=== PATIENT | female | born 1935 | race Caucasian/White ===

== ENCOUNTER 2017-08-12 16:06 | Emergency (ER) | payer MEDICARE ==
[2017-08-12 16:18] VITALS: BP 176/79; PULSE 78; RESP 18; TEMP 97.9
--- NOTE | 2017-08-12 16:30 | ED ---
General Adult HPI - General Chief complaint: Extremity Injury, Upper Stated complaint: Fall-shoulder injury Time Seen by Provider: 08/12/17 16:22 Source: patient, RN notes reviewed Mode of arrival: ambulatory Limitations: no limitations - History of Present Illness Initial comments: 82-year-old female presents to the emergency department with a chief complaint of left shoulder pain. Patient tripped on the last step and fell onto her left shoulder. She denies any head or neck pain. She denies any pain anywhere else. She states it hurts if she moves her left shoulder. She states she has not had any other symptoms. States it was a simple trip and fall. There is no loss of consciousness with this. Patient denies any chest pain and lightheadedness or dizziness. Patient was concerned due to her continued pain in the left arm so she thought that she should be evaluated.Patient denies any recent fever, chills, shortness of breath, chest pain, back pain, abdominal pain , nausea vomiting, numbness or tingling, dysuria or hematuria, constipation or diarrhea, headaches or visual changes, or any other current symptoms. - Related Data Home Medications Medication Instructions Recorded Confirmed Aspirin EC [Ecotrin Low Dose] 81 mg PO DAILY 03/28/16 08/12/17 Captopril [Capoten] 6.25 mg PO BID 03/28/16 08/12/17 Levothyroxine Sodium [Synthroid] 100 mcg PO DAILY 03/28/16 08/12/17 Simvastatin [Zocor] 40 mg PO DAILY 03/28/16 08/12/17 Previous Rx's Medication Instructions Recorded Isosorbide Mononitrate ER [Imdur] 30 mg PO DAILY #30 tab.er.24h 08/08/16 Nitroglycerin Sl Tabs [Nitrostat] 0.4 mg SUBLINGUAL Q5M PRN #25 tab 08/08/16 amLODIPine [Norvasc] 5 mg PO DAILY #30 tab 08/08/16 Allergies Allergy/AdvReac Type Severity Reaction Status Date / Time No Known Allergies Allergy Verified 08/12/17 16:18 Review of Systems ROS Statement: Those systems with pertinent positive or pertinent negative responses have been documented in the HPI. ROS Other: All systems not noted in ROS Statement are negative. Past Medical History Past Medical History: Cancer, Chest Pain / Angina, Hyperlipidemia, Hypertension History of Any Multi-Drug Resistant Organisms: None Reported Past Surgical History: Coronary Bypass/CABG, Hysterectomy Past Anesthesia/Blood Transfusion Reactions: No Reported Reaction Past Psychological History: No Psychological Hx Reported Smoking Status: Never smoker Past Alcohol Use History: None Reported Past Drug Use History: None Reported General Exam - General Exam Comments Initial Comments: General: The patient is awake and alert, in no distress, and does not appear acutely ill. Neck: The neck is supple, there is no tenderness. Cardiovascular: There is a regular rate and rhythm. No murmur, rub or gallop is appreciated. Respiratory: Lungs are clear to auscultation, respirations are non-labored, breath sounds are equal. No wheezes, stridor, rales, or rhonchi. Musculoskeletal: Sensation intact with 2+ pulses throughout the left upper extremity. Patient's finding motion of left shoulder. She is tenderness to patient to the distal humerus. Fund motion of left elbow with no joint tenderness. Patient does have some pain with supination. No tenderness patient of the right wrist full range of motion. No deformity or swelling or ecchymosis noted. Neurological: CN II-XII intact, There are no obvious motor or sensory deficits. Coordination appears grossly intact. Speech is normal. Skin: Skin is warm and dry and no rashes or lesions are noted. Psychiatric: Normal mood and affect. Limitations: no limitations Course Vital Signs 08/12/17 16:15 Temperature 97.9 F Pulse Rate 78 Respiratory 18 Rate Blood Pressure 176/79 O2 Sat by Pulse 97 Oximetry Medical Decision Making - Medical Decision Making 82-year-old female presents to the emergency department with a chief complaint of left upper arm pain after a fall. At this time patient's x-rays reviewed and Negative. We discussed she could've a left shoulder sprain. We discussed follow-up with orthopedic return parameters all questions. Patient and family stated they understood and the on agreement this plan. At this time the patient will be discharged home. - Radiology Data Radiology results: report reviewed, image reviewed Disposition Clinical Impression: Sprain of left shoulder Disposition: HOME SELF-CARE Condition: Stable Instructions: Shoulder Sprain (ED) Additional Instructions: Please use medication as discussed. Please follow up with family doctor if symptoms have not improved over the next two days. Please return to the emergency room if your symptoms increase or worsen or for any other concerns. Referrals: Gennaro Benavides MD [Primary Care Provider] - 1-2 days Douglas Benavides MD [STAFF PHYSICIAN] - 1-2 days Time of Disposition: 17:06
--- NOTE | 2017-08-12 16:42 | XR ---
EXAMINATION TYPE: XR shoulder complete LT DATE OF EXAM: 08/12/2017 CLINICAL HISTORY: pain COMPARISON: NONE TECHNIQUE: Three views of the left shoulder are obtained. FINDINGS: There is no acute fracture/dislocation evident. The acromioclavicular and glenohumeral samira int spaces appear mildly narrowed. Humeral head spurring. The visualized ribs are intact and unremar kable. IMPRESSION: 1. There is no acute fracture or dislocation. ICD 10 NO FRACTURE, INITIAL EVALUATION
--- NOTE | 2017-08-12 16:55 | XR ---
EXAMINATION TYPE: XR humerus LT DATE OF EXAM: 08/12/2017 CLINICAL HISTORY: pain TECHNIQUE: Frontal and lateral images of the left humerus are obtained. COMPARISON: None. FINDINGS: There is no acute fracture/dislocation evident. The joint spaces appear within normal limi ts. The overlying soft tissue appears unremarkable. IMPRESSION: There is no acute fracture or dislocation. ICD 10 NO FRACTURE, INITIAL EVALUATION
== END 2017-08-12 17:23 | disposition home or self-care (01) ==
LOC: EC 16:06
DX: S43.402A Unspecified sprain of left shoulder joint, initial encounter (principal); E78.5 Hyperlipidemia, unspecified; I10 Essential (primary) hypertension; Z85.9 Personal history of malignant neoplasm, unspecified; Z95.1 Presence of aortocoronary bypass graft; Z79.82 Long term (current) use of aspirin; Z79.899 Other long term (current) drug therapy; W10.9XXA Fall (on) (from) unspecified stairs and steps, initial encounter; Y93.01 Activity, walking, marching and hiking
CPT/HCPCS: 99283

== ENCOUNTER 2018-01-19 12:09 | Emergency (ER) | payer MEDICARE ==
[2018-01-19] MEDS ORDERED: SODIUM CHLORIDE 0.9% 500 ML IV ONE (12:18)
--- NOTE | 2018-01-19 12:24 | ED ---
General Adult HPI - General Stated complaint: Unresponsive Time Seen by Provider: 01/19/18 12:09 Source: RN notes reviewed - History of Present Illness Initial comments: This is a 83-year-old female we were told by EMS. EMS was initially called for 1080 however when they arrived the patient was having agonal breathing so they bagged the patient they tried to intubate unable to intubate at the scene unable to get an IV and he brought her to us. According to the EMS patient was out raking earlier today and then son came to her house and was unable to get her to answer the dorsi broken the door and found the mother unresponsive and that is when he called EMS. Patient does have some contusion to the right cheek and orbit area. patient did have emesis on her. No other history is available this time in route. patient remained unresponsive Review of Systems ROS Statement: Those systems with pertinent positive or pertinent negative responses have been documented in the HPI. ROS Other: All systems not noted in ROS Statement are negative. General Exam - General Exam Comments Initial Comments: GENERAL: Patient is well-developed and well-nourished. Patient is completely unresponsive even to painful stimuli ENT: Oropharynx has some emesis which is suctioned out by myself. EYES: The sclera were anicteric and conjunctiva were pink and moist. Pupils are fixed and nonreactive PULMONARY: Patient has some agonal breathing with making it difficult to assess the lungs. CARDIOVASCULAR: There is a regular rate and rhythm without any murmurs gallops or rubs. ABDOMEN: Soft and nontender with normal bowel sounds. No palpable organomegaly was noted. There is no palpable pulsatile mass. SKIN: Skin is clear with no lesions or rashes and otherwise unremarkable. NEUROLOGIC: Patient is not alert or oriented. Pupils are fixed and nonreactive MUSCULOSKELETAL: Patient is not moving any extremities at this time LYMPHATICS: No significant lymphadenopathy is noted PSYCHIATRIC: Unable to assess Course Vital Signs 01/19/18 01/19/18 01/19/18 12:23 12:49 12:53 Pulse Rate 69 50 L 48 L Respiratory 5 L 12 12 Rate Blood Pressure 126/77 121/69 115/64 O2 Sat by Pulse 85 L 100 100 Oximetry 01/19/18 01/19/18 01/19/18 13:01 13:14 13:16 Pulse Rate 46 L 44 L 42 L Respiratory 12 12 12 Rate Blood Pressure 133/72 174/70 132/73 O2 Sat by Pulse 100 100 100 Oximetry Procedures - Intubation Time Out Performed: Yes Sedative: Versed Paralytic: Succinylcholine Laryngoscope: Bolton Size: 3 ET Tube Size: 8 ET Tube Uncuffed: No Tube Secured Location: teeth Tube Placement Confirmation: visualized tube passing through cords, equal breath sounds bilaterally, no breath sounds over epigastrium, confirmation by capnometry Patient Tolerated Procedure: well Intubation Complications: none Medical Decision Making - Medical Decision Making EKG shows sinus bradycardia at 57 bpm OH interval is 150 QRS is 90 QT intervals 594 QTC is 578. Patient has Q waves in II, III, and F aVF patient's EKG shows no ST segment elevation or depression. Patient's CT of the brain shows a large left-sided intraparenchymal bleed with extension to both ventricles there is a 1.6 cm shift to the right. Patient's C- spine shows no acute abnormality. Patient is CT of the facial bones there are fractures of the medial wall of both orbits or fractures the medial wall the right maxillary sinus there is suspicion for a nasal bone fracture. I spoke with the 2 sons and the daughter who was in [place] by phone and they all agreed that they did not want the patient transferred from [place] with neurosurgery and they wanted to keep the patient comfortable only they did not want her on the ventilator and they did not want any CPR. Patient was extubated per family request. Patient was pronounced at 2:19 PM I spoke with the medical cash poster and she wanted the body in the morgue - Lab Data Result diagrams: 01/19/18 12:17 01/19/18 12:17 Lab Results 01/19/18 01/19/18 01/19/18 Range/Units 12:17 12:17 12:17 WBC 9.0 (3.8-10.6) k/uL RBC 5.02 (3.80-5.40) m/uL Hgb 15.7 (11.4-16.0) gm/dL Hct 46.2 H (34.0-46.0) % MCV 92.1 (80.0-100.0) fL MCH 31.2 (25.0-35.0) pg MCHC 33.9 (31.0-37.0) g/dL RDW 14.5 (11.5-15.5) % Plt Count 224 (150-450) k/uL Neutrophils % (Manual) 66 % Band Neutrophils % 12 % Lymphocytes % (Manual) 15 % Monocytes % (Manual) 7 % Neutrophils # (Manual) 7.00 (1.3-7.7) k/uL Lymphocytes # (Manual) 1.35 (1.0-4.8) k/uL Monocytes # (Manual) 0.63 (0-1.0) k/uL Nucleated RBCs 0 (0-0) /100 WBC PT (9.0-12.0) sec INR (<1.2) APTT (22.0-30.0) sec Sample Site ABG pH (7.35-7.45) ABG pCO2 (35-45) mmHg ABG pO2 (83-108) mmHg ABG HCO3 (21-25) mmol/L ABG Total CO2 (19-24) mmol/L ABG O2 Saturation (94-97) % ABG Base Excess mmol/L Lawrence Test FiO2 % Sodium 136 L (137-145) mmol/L Potassium 3.6 (3.5-5.1) mmol/L Chloride 94 L (98-107) mmol/L Carbon Dioxide 27 (22-30) mmol/L Anion Gap 15 mmol/L BUN 29 H (7-17) mg/dL Creatinine 1.00 (0.52-1.04) mg/dL Est GFR (CKD-EPI)AfAm 48 (>60 ml/min/1.73 sqM) Est GFR (CKD-EPI)NonAf 41 (>60 ml/min/1.73 sqM) Glucose 155 H (74-99) mg/dL POC Glucose (mg/dL) (75-99) mg/dL POC Glu Tumbling And Rolling Supervisor ID Plasma Lactic Acid Yared (0.7-2.0) mmol/L Calcium 9.2 (8.4-10.2) mg/dL Total Bilirubin 1.0 (0.2-1.3) mg/dL AST 149 H (14-36) U/L ALT 47 (9-52) U/L Alkaline Phosphatase 98 (38-126) U/L Total Creatine Kinase 4710 H (30-135) U/L CK-MB (CK-2) 80.0 H* (0.0-2.4) ng/mL CK-MB (CK-2) Rel Index Troponin I 0.028 (0.000-0.034) ng/mL Total Protein 6.9 (6.3-8.2) g/dL Albumin 3.9 (3.5-5.0) g/dL Urine Color Urine Appearance (Clear) Urine pH (5.0-8.0) Ur Specific Otley (1.001-1.035) Urine Protein (Negative) Urine Glucose (UA) (Negative) Urine Ketones (Negative) Urine Blood (Negative) Urine Nitrite (Negative) Urine Bilirubin (Negative) Urine Urobilinogen (<2.0) mg/dL Ur Leukocyte Esterase (Negative) Urine RBC (0-5) /hpf Urine WBC (0-5) /hpf Urine Mucus (None) /hpf Gastric Occult Blood (Negative) Urine Opiates Screen (NotDetected) Ur Oxycodone Screen (NotDetected) Urine Methadone Screen (NotDetected) Ur Propoxyphene Screen (NotDetected) Ur Barbiturates Screen (NotDetected) U Tricyclic Antidepress (NotDetected) Ur Phencyclidine Scrn (NotDetected) Ur Amphetamines Screen (NotDetected) U Methamphetamines Scrn (NotDetected) U Benzodiazepines Scrn (NotDetected) Urine Cocaine Screen (NotDetected) U Marijuana (THC) Screen (NotDetected) Blood Type Blood Type Recheck Antibody Screen Spec Expiration Date 01/19/18 01/19/18 01/19/18 Range/Units 12:17 12:17 12:17 WBC (3.8-10.6) k/uL RBC (3.80-5.40) m/uL Hgb (11.4-16.0) gm/dL Hct (34.0-46.0) % MCV (80.0-100.0) fL MCH (25.0-35.0) pg MCHC (31.0-37.0) g/dL RDW (11.5-15.5) % Plt Count (150-450) k/uL Neutrophils % (Manual) % Band Neutrophils % % Lymphocytes % (Manual) % Monocytes % (Manual) % Neutrophils # (Manual) (1.3-7.7) k/uL Lymphocytes # (Manual) (1.0-4.8) k/uL Monocytes # (Manual) (0-1.0) k/uL Nucleated RBCs (0-0) /100 WBC PT 9.6 (9.0-12.0) sec INR 1.0 (<1.2) APTT 22.2 (22.0-30.0) sec Sample Site ABG pH (7.35-7.45) ABG pCO2 (35-45) mmHg ABG pO2 (83-108) mmHg ABG HCO3 (21-25) mmol/L ABG Total CO2 (19-24) mmol/L ABG O2 Saturation (94-97) % ABG Base Excess mmol/L Lawrence Test FiO2 % Sodium (137-145) mmol/L Potassium (3.5-5.1) mmol/L Chloride (98-107) mmol/L Carbon Dioxide (22-30) mmol/L Anion Gap mmol/L BUN (7-17) mg/dL Creatinine (0.52-1.04) mg/dL Est GFR (CKD-EPI)AfAm (>60 ml/min/1.73 sqM) Est GFR (CKD-EPI)NonAf (>60 ml/min/1.73 sqM) Glucose (74-99) mg/dL POC Glucose (mg/dL) (75-99) mg/dL POC Glu Tumbling And Rolling Supervisor ID Plasma Lactic Acid Yared 3.6 H* (0.7-2.0) mmol/L Calcium (8.4-10.2) mg/dL Total Bilirubin (0.2-1.3) mg/dL AST (14-36) U/L ALT (9-52) U/L Alkaline Phosphatase (38-126) U/L Total Creatine Kinase (30-135) U/L CK-MB (CK-2) (0.0-2.4) ng/mL CK-MB (CK-2) Rel Index Troponin I (0.000-0.034) ng/mL Total Protein (6.3-8.2) g/dL Albumin (3.5-5.0) g/dL Urine Color Yellow Urine Appearance Clear (Clear) Urine pH 6.5 (5.0-8.0) Ur Specific Otley 1.016 (1.001-1.035) Urine Protein 3+ H (Negative) Urine Glucose (UA) Negative (Negative) Urine Ketones Negative (Negative) Urine Blood Moderate H (Negative) Urine Nitrite Negative (Negative) Urine Bilirubin Negative (Negative) Urine Urobilinogen <2.0 (<2.0) mg/dL Ur Leukocyte Esterase Negative (Negative) Urine RBC 2 (0-5) /hpf Urine WBC 1 (0-5) /hpf Urine Mucus Rare H (None) /hpf Gastric Occult Blood (Negative) Urine Opiates Screen Not Detected (NotDetected) Ur Oxycodone Screen Not Detected (NotDetected) Urine Methadone Screen Not Detected (NotDetected) Ur Propoxyphene Screen Not Detected (NotDetected) Ur Barbiturates Screen Not Detected (NotDetected) U Tricyclic Antidepress Not Detected (NotDetected) Ur Phencyclidine Scrn Not Detected (NotDetected) Ur Amphetamines Screen Not Detected (NotDetected) U Methamphetamines Scrn Not Detected (NotDetected) U Benzodiazepines Scrn Not Detected (NotDetected) Urine Cocaine Screen Not Detected (NotDetected) U Marijuana (THC) Screen Not Detected (NotDetected) Blood Type Blood Type Recheck Antibody Screen Spec Expiration Date 01/19/18 01/19/18 01/19/18 Range/Units 12:17 12:32 13:25 WBC (3.8-10.6) k/uL RBC (3.80-5.40) m/uL Hgb (11.4-16.0) gm/dL Hct (34.0-46.0) % MCV (80.0-100.0) fL MCH (25.0-35.0) pg MCHC (31.0-37.0) g/dL RDW (11.5-15.5) % Plt Count (150-450) k/uL Neutrophils % (Manual) % Band Neutrophils % % Lymphocytes % (Manual) % Monocytes % (Manual) % Neutrophils # (Manual) (1.3-7.7) k/uL Lymphocytes # (Manual) (1.0-4.8) k/uL Monocytes # (Manual) (0-1.0) k/uL Nucleated RBCs (0-0) /100 WBC PT (9.0-12.0) sec INR (<1.2) APTT (22.0-30.0) sec Sample Site ABG pH (7.35-7.45) ABG pCO2 (35-45) mmHg ABG pO2 (83-108) mmHg ABG HCO3 (21-25) mmol/L ABG Total CO2 (19-24) mmol/L ABG O2 Saturation (94-97) % ABG Base Excess mmol/L Lawrence Test FiO2 % Sodium (137-145) mmol/L Potassium (3.5-5.1) mmol/L Chloride (98-107) mmol/L Carbon Dioxide (22-30) mmol/L Anion Gap mmol/L BUN (7-17) mg/dL Creatinine (0.52-1.04) mg/dL Est GFR (CKD-EPI)AfAm (>60 ml/min/1.73 sqM) Est GFR (CKD-EPI)NonAf (>60 ml/min/1.73 sqM) Glucose (74-99) mg/dL POC Glucose (mg/dL) 148 H (75-99) mg/dL POC Glu Tumbling And Rolling Supervisor ID Jung Stevenson Plasma Lactic Acid Yared (0.7-2.0) mmol/L Calcium (8.4-10.2) mg/dL Total Bilirubin (0.2-1.3) mg/dL AST (14-36) U/L ALT (9-52) U/L Alkaline Phosphatase (38-126) U/L Total Creatine Kinase (30-135) U/L CK-MB (CK-2) (0.0-2.4) ng/mL CK-MB (CK-2) Rel Index Troponin I (0.000-0.034) ng/mL Total Protein (6.3-8.2) g/dL Albumin (3.5-5.0) g/dL Urine Color Urine Appearance (Clear) Urine pH (5.0-8.0) Ur Specific Otley (1.001-1.035) Urine Protein (Negative) Urine Glucose (UA) (Negative) Urine Ketones (Negative) Urine Blood (Negative) Urine Nitrite (Negative) Urine Bilirubin (Negative) Urine Urobilinogen (<2.0) mg/dL Ur Leukocyte Esterase (Negative) Urine RBC (0-5) /hpf Urine WBC (0-5) /hpf Urine Mucus (None) /hpf Gastric Occult Blood Positive (Negative) Urine Opiates Screen (NotDetected) Ur Oxycodone Screen (NotDetected) Urine Methadone Screen (NotDetected) Ur Propoxyphene Screen (NotDetected) Ur Barbiturates Screen (NotDetected) U Tricyclic Antidepress (NotDetected) Ur Phencyclidine Scrn (NotDetected) Ur Amphetamines Screen (NotDetected) U Methamphetamines Scrn (NotDetected) U Benzodiazepines Scrn (NotDetected) Urine Cocaine Screen (NotDetected) U Marijuana (THC) Screen (NotDetected) Blood Type O Positive Blood Type Recheck No Antibody Screen NEGATIVE Spec Expiration Date 01/22/2018 - 232401/19/18 Range/Units 13:34 WBC (3.8-10.6) k/uL RBC (3.80-5.40) m/uL Hgb (11.4-16.0) gm/dL Hct (34.0-46.0) % MCV (80.0-100.0) fL MCH (25.0-35.0) pg MCHC (31.0-37.0) g/dL RDW (11.5-15.5) % Plt Count (150-450) k/uL Neutrophils % (Manual) % Band Neutrophils % % Lymphocytes % (Manual) % Monocytes % (Manual) % Neutrophils # (Manual) (1.3-7.7) k/uL Lymphocytes # (Manual) (1.0-4.8) k/uL Monocytes # (Manual) (0-1.0) k/uL Nucleated RBCs (0-0) /100 WBC PT (9.0-12.0) sec INR (<1.2) APTT (22.0-30.0) sec Sample Site lrad ABG pH 7.32 L (7.35-7.45) ABG pCO2 43 (35-45) mmHg ABG pO2 >400 H (83-108) mmHg ABG HCO3 22 (21-25) mmol/L ABG Total CO2 24 (19-24) mmol/L ABG O2 Saturation 100.0 H (94-97) % ABG Base Excess -3.7 mmol/L Lawrence Test Yes FiO2 100 % Sodium (137-145) mmol/L Potassium (3.5-5.1) mmol/L Chloride (98-107) mmol/L Carbon Dioxide (22-30) mmol/L Anion Gap mmol/L BUN (7-17) mg/dL Creatinine (0.52-1.04) mg/dL Est GFR (CKD-EPI)AfAm (>60 ml/min/1.73 sqM) Est GFR (CKD-EPI)NonAf (>60 ml/min/1.73 sqM) Glucose (74-99) mg/dL POC Glucose (mg/dL) (75-99) mg/dL POC Glu Tumbling And Rolling Supervisor ID Plasma Lactic Acid Yared (0.7-2.0) mmol/L Calcium (8.4-10.2) mg/dL Total Bilirubin (0.2-1.3) mg/dL AST (14-36) U/L ALT (9-52) U/L Alkaline Phosphatase (38-126) U/L Total Creatine Kinase (30-135) U/L CK-MB (CK-2) (0.0-2.4) ng/mL CK-MB (CK-2) Rel Index Troponin I (0.000-0.034) ng/mL Total Protein (6.3-8.2) g/dL Albumin (3.5-5.0) g/dL Urine Color Urine Appearance (Clear) Urine pH (5.0-8.0) Ur Specific Otley (1.001-1.035) Urine Protein (Negative) Urine Glucose (UA) (Negative) Urine Ketones (Negative) Urine Blood (Negative) Urine Nitrite (Negative) Urine Bilirubin (Negative) Urine Urobilinogen (<2.0) mg/dL Ur Leukocyte Esterase (Negative) Urine RBC (0-5) /hpf Urine WBC (0-5) /hpf Urine Mucus (None) /hpf Gastric Occult Blood (Negative) Urine Opiates Screen (NotDetected) Ur Oxycodone Screen (NotDetected) Urine Methadone Screen (NotDetected) Ur Propoxyphene Screen (NotDetected) Ur Barbiturates Screen (NotDetected) U Tricyclic Antidepress (NotDetected) Ur Phencyclidine Scrn (NotDetected) Ur Amphetamines Screen (NotDetected) U Methamphetamines Scrn (NotDetected) U Benzodiazepines Scrn (NotDetected) Urine Cocaine Screen (NotDetected) U Marijuana (THC) Screen (NotDetected) Blood Type Blood Type Recheck Antibody Screen Spec Expiration Date Disposition Clinical Impression: Cerebral parenchymal hemorrhage, Facial fracture, Need for comfort care Disposition: Referrals: None,Stated [REFERRING] - 1-2 days Time of Disposition: 13:49 Preliminary Cause of : Intracranial hemorrhage
[2018-01-19 12:33] LABS: HCT 46.2 % (34.0-46.0); HGB 15.7 gm/dL (11.4-16.0); MCH 31.2 pg (25.0-35.0); MCHC 33.9 g/dL (31.0-37.0); MCV 92.1 fL (80.0-100.0); Mean Platelet Volume 7.2; Platelet Count 224 k/uL (150-450); RBC 5.02 m/uL (3.80-5.40); RDW 14.5 % (11.5-15.5)
[2018-01-19 12:38] LABS: Partial Thromboplastin Time 22.2 sec (22.0-30.0); Prothrombin Time 9.6 sec (9.0-12.0)
--- NOTE | 2018-01-19 12:40 | XR ---
EXAMINATION TYPE: XR chest 1V portable DATE OF EXAM: 01/19/2018 CLINICAL HISTORY: Pain TECHNIQUE: Single frontal view of the chest is obtained. COMPARISON: None FINDINGS: Endotracheal tube is within the right mainstem bronchus and should be pulled back approxima tely 4 to 5 cm. Increased density throughout the right lung greatest about the right hilum. The left lung is well aerated. Cardiomediastinal structures are midline. Remote left-sided rib fractures. IMPRESSION: 1. Endotracheal tube is within the right mainstem bronchus and should be pulled back. 2. There is a patchy density right lung may reflect underlying pneumonia. 3. Distention of the stomach.
[2018-01-19 12:41] LABS: Albumin 3.9 g/dL (3.5-5.0); Calcium 9.2 mg/dL (8.4-10.2); Potassium 3.6 mmol/L (3.5-5.1); Total Protein 6.9 g/dL (6.3-8.2)
[2018-01-19 12:54] LABS: Glucose,Whole Blood 148 mg/dL (75-99)
[2018-01-19 13:03] LABS: Appearance,Urine Clear (Clear); Bilirubin,Urine Negative (Negative); Blood,Urine Moderate (Negative); Color,Urine Yellow; Glucose,Urine (UA) Negative (Negative); Ketones,Urine Negative (Negative); Leukocyte Esterase,Urine Negative (Negative); Mucus,Urine Rare /hpf; Nitrite,Urine Negative (Negative); PH, Urine 6.5 (5.0-8.0); Protein,Urine 3+ (Negative); RBC,Urine 2 /hpf (0-5); Specific Gravity,Urine 1.016 (1.001-1.035); Urobilinogen,Urine <2.0 mg/dL (<2.0); WBC,Urine 1 /hpf (0-5)
[2018-01-19 13:04] LABS: Troponin I 0.028 ng/mL (0.000-0.034)
[2018-01-19 13:08] LABS: Amphetamine Screen,Urine Not Detected (NotDetected); Barbiturate Screen,Urine Not Detected (NotDetected); Benzodiazepines Screen,Urine Not Detected (NotDetected); Cocaine Screen,Urine Not Detected (NotDetected); Methadone Screen, Urine Not Detected (NotDetected); Opiate Screen,Urine Not Detected (NotDetected); Oxycodone Screen, Urine Not Detected (NotDetected); Phencyclidine Screen,Urine Not Detected (NotDetected); Tricyclic Antidepressant,Urine Not Detected (NotDetected); Urn Cannabinoid Scrn Not Detected (NotDetected)
[2018-01-19 13:18] LABS: Band Neutrophils % 12 %; Lymphocytes # (M) 1.35 k/uL (1.0-4.8); Monocytes # (M) 0.63 k/uL (0-1.0); Neutrophils % (M) 66 %; Nucleated Red Blood Cells 0 /100 WBC (0-0); Total Cells Counted 100
--- NOTE | 2018-01-19 13:24 | CT ---
EXAMINATION TYPE: CT facial bones wo con DATE OF EXAM: 01/19/2018 COMPARISON: NONE HISTORY: Unresponsive CT DLP: 1727.8 ( brain, cervical, facial bones) mGycm Automated exposure control for dose reduction was used. TECHNIQUE: CT scan of the sinuses is performed without contrast, axial images are obtained, coronal r eformatted images are also reviewed. FINDINGS: There is a small right femoral scalp hematoma. There is soft tissue swelling adjacent to th e right side of the right orbit and mandible. There is a nasogastric tube in place. There is an air-f luid level in the right maxillary sinus. I cannot attest to the integrity of the medial wall. I am kendall spicious that there is a minimally displaced fracture the right side of the nasion. There are mildly displaced fractures of the medial wall of both orbits.. The zygomatic arches are int act. The pterygoid plates are intact. There is incomplete the visualized intracranial hemorrhage. Thi s will be discussed further on the CT scan of the brain. IMPRESSION: 1. FRACTURES OF BOTH THE MEDIAL WALL OF BOTH ORBITS. 2. FRACTURE THE MEDIAL WALL OF THE RIGHT MAXILLARY SINUS. 3. I SUSPICIOUS THAT THERE IS A RIGHT-SIDED NASAL FRACTURE. 4. INTRACRANIAL HEMORRHAGE. 5. SOFT TISSUE INJURY.
--- NOTE | 2018-01-19 13:30 | CT ---
EXAMINATION TYPE: CT brain cspine wo con DATE OF EXAM: 01/19/2018 COMPARISON: NONE HISTORY: Unresponsive CT DLP: 1727.8 ( brain, cervical, facial bones) mGycm Automated exposure control for dose reduction was used. TECHNIQUE: CT scan of the head and cervical spine are performed without contrast. FINDINGS: BRAIN: There is a large intraparenchymal bleed in the left frontoparietal region with extension into the left lateral ventricle and also the right lateral ventricle. There is a large amount of mass effe ct with a 16 mm subfalcine shift towards the right. There is extensive surrounding edema. There is no gross tonsillar herniation. IMPRESSION: 1. LARGE LEFT-SIDED INTRAPARENCHYMAL BLEED WITH EXTENSION INTO BOTH LATERAL HORN. 2. EXTENSIVE EDEMA CERVICAL SPINE: The patient is intubated. There is an ET tube in place. There is groundglass opacity in the right upper lobe. This may be due to pulmonary contusion or alveo litis. Prevertebral soft tissues are unremarkable. Vertebral body height and alignment are maintained. Atlantoaxial relationships are normal. There is d egenerative disc disease and hypertrophic spondylosis at C5-6 and C6-7 and to a lesser extent C4-5. T here is uncovertebral joint disease at these levels. No protrusion is seen. No fractures are identifi ed. IMPRESSION: 1. NO ACUTE OSSEOUS LESION. 2. DEGENERATIVE CHANGE.
[2018-01-19] MEDS ORDERED: SODIUM CHLORIDE 0.9% 1,000 ML IV STA (13:40)
[2018-01-19 13:42] LABS: ABG Base Excess -3.7 mmol/L; ABG HCO3 22 mmol/L (21-25); ABG PCO2 43 mmHg (35-45); ABG PH 7.32 (7.35-7.45); ABG PO2 >400 mmHg (83-108); ABG TCO2 24 mmol/L (19-24)
[2018-01-19] MEDS ORDERED: MIDAZOLAM (PF) 1 MG/ML 5 ML VIAL IV STA (13:43)
[2018-01-19] MEDS ORDERED: SUCCINYLCHOLINE CHLORIDE VIAL 200 MG/10 ML VIAL IV STA (13:48)
[2018-01-19] MEDS ORDERED: SODIUM CHLORIDE 0.9% 1,000 ML IV ONE (13:53)
[2018-01-19 15:01] VITALS: RESP 0
[2018-01-19 15:02] VITALS: BP 70/40
[2018-01-19 15:17] VITALS: TEMP 85
--- NOTE | 2018-01-19 16:05 | P.HPIM ---
History of Present Illness 82-year-old female admitted for intracerebral bleed came in to ER intubated patient had intracerebral bleed with midline shift patient was subsequently extubated in ER was made comfort care and before I can evaluate the patient. Physical Exam Vitals: Vital Signs Temp Pulse Resp BP Pulse Ox 01/19/18 14:18 0 L 0 L 0 L 01/19/18 14:08 27 L 2 L 70/40 12 L 01/19/18 13:46 42 L 12 137/83 100 01/19/18 13:31 40 L 12 139/71 100 01/19/18 13:16 42 L 12 132/73 100 01/19/18 13:14 44 L 12 174/70 100 01/19/18 13:01 46 L 12 133/72 100 01/19/18 12:53 48 L 12 115/64 100 01/19/18 12:49 50 L 12 121/69 100 01/19/18 12:30 85 F L 01/19/18 12:23 69 5 L 126/77 85 L Intake and Output 01/19/18 01/19/18 01/19/18 06:59 14:59 22:59 Output Total 1230 Balance -1230 Output: Gastric Drainage 130 Urine 1100 Uretheral (Cardoso) 500 Other: Weight 43.091 kg Results CBC & Chem 7: 01/19/18 12:17 01/19/18 12:17 Labs: Abnormal Lab Results - Last 24 Hours (Table) 01/19/18 01/19/18 01/19/18 Range/Units 12:17 12:17 12:17 Hct 46.2 H (34.0-46.0) % ABG pH (7.35-7.45) ABG pO2 (83-108) mmHg ABG O2 Saturation (94-97) % Sodium 136 L (137-145) mmol/L Chloride 94 L (98-107) mmol/L BUN 29 H (7-17) mg/dL Glucose 155 H (74-99) mg/dL POC Glucose (mg/dL) (75-99) mg/dL Plasma Lactic Acid Yared (0.7-2.0) mmol/L AST 149 H (14-36) U/L Total Creatine Kinase 4710 H (30-135) U/L CK-MB (CK-2) 80.0 H* (0.0-2.4) ng/mL Urine Protein (Negative) Urine Blood (Negative) Urine Mucus (None) /hpf 01/19/18 01/19/18 01/19/18 Range/Units 12:17 12:17 12:32 Hct (34.0-46.0) % ABG pH (7.35-7.45) ABG pO2 (83-108) mmHg ABG O2 Saturation (94-97) % Sodium (137-145) mmol/L Chloride (98-107) mmol/L BUN (7-17) mg/dL Glucose (74-99) mg/dL POC Glucose (mg/dL) 148 H (75-99) mg/dL Plasma Lactic Acid Yared 3.6 H* (0.7-2.0) mmol/L AST (14-36) U/L Total Creatine Kinase (30-135) U/L CK-MB (CK-2) (0.0-2.4) ng/mL Urine Protein 3+ H (Negative) Urine Blood Moderate H (Negative) Urine Mucus Rare H (None) /hpf 01/19/18 Range/Units 13:34 Hct (34.0-46.0) % ABG pH 7.32 L (7.35-7.45) ABG pO2 >400 H (83-108) mmHg ABG O2 Saturation 100.0 H (94-97) % Sodium (137-145) mmol/L Chloride (98-107) mmol/L BUN (7-17) mg/dL Glucose (74-99) mg/dL POC Glucose (mg/dL) (75-99) mg/dL Plasma Lactic Acid Yared (0.7-2.0) mmol/L AST (14-36) U/L Total Creatine Kinase (30-135) U/L CK-MB (CK-2) (0.0-2.4) ng/mL Urine Protein (Negative) Urine Blood (Negative) Urine Mucus (None) /hpf
--- NOTE | 2018-01-19 16:06 | P.DS ---
Providers Primary care physician: [facility] Course: As mentioned in HPI Plan - Discharge Summary Follow up Appointment(s)/Referral(s): None,Stated [REFERRING] - 1-2 days Discharge Disposition: - Preliminary Cause of Preliminary Cause of : Primary cause of intracerebral hemorrhage
[2018-01-19 16:43] VITALS: PULSE 62
== END 2018-01-19 14:45 | disposition expired ==
LOC: MERGE 12:09 → EC 12:09
DX: S06.369A Traumatic hemorrhage of cerebrum, unspecified, with loss of consciousness of unspecified duration, initial encounter (principal); S02.40CA Maxillary fracture, right side, initial encounter for closed fracture; S02.82XA Fracture of other specified skull and facial bones, left side, initial encounter for closed fracture; S02.81XA Fracture of other specified skull and facial bones, right side, initial encounter for closed fracture; Z74.1 Need for assistance with personal care; R00.1 Bradycardia, unspecified; Z53.8 Procedure and treatment not carried out for other reasons; X58.XXXA Exposure to other specified factors, initial encounter
CPT/HCPCS: 99285; 31500; 96360; 43753; 36415; 36600; 94002; 93005; 86900; 86901; 80053; 82550; 82553; 82805; 83605; 84484; 85025; 85610; 85730; 86850; 82271; 81001; 87040; 80306; 71045; 72125; 70486; 70450; J0330; J2250